=== PATIENT | male | born 1970 | race Caucasian/White ===

== ENCOUNTER 2017-01-03 03:39 | Emergency (ER) | payer OTHER ==
[2017-01-03] MEDS ORDERED: DIPHTH,PERTUSS(ACELL),TET 0.5 ML DISP.SYRIN IM ONE (04:05)
[2017-01-03 04:29] VITALS: TEMP 98.7; BMI 23.3
[2017-01-03] MEDS ORDERED: ceFAZolin 2 GRAM PREMIX BAG IVPB ONE (04:30)
[2017-01-03] MEDS ORDERED: D5W ONE (05:01)
[2017-01-03] MEDS ORDERED: CEFAZOLIN ONE (05:01)
--- NOTE | 2017-01-03 05:07 | PDOC ---
History of Present Illness - General Chief Complaint: Injury Stated Complaint: LACERATION TO RIGHT FINGERS Time Seen by Provider: 01/03/17 03:56 - History of Present Illness Initial Comments: 01/03/17 05:02 CHIEF COMPLAINT: laceration to R index finger HISTORY OF PRESENT ILLNESS: 46 yo M with no significant PMH presents to ED with crush injury and laceration to R index finger. Patient states that he was walking down basement stairs and his hand was still above his head when someone shut the metal basement door on his finger. 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 Patient is unsure when his last tetanus shot was. No recent travel or sick contacts. PAST MEDICAL HISTORY: Denies past medical history FAMILY HISTORY: Denies SOCIAL HISTORY: Denies tobacco, alcohol, illicit drug use. SURGICAL HISTORY: Denies ALLERGIES: No known drug allergies REVIEW OF SYSTEMS General/Constitutional: Denies fever or chills. Denies weakness, weight change. HEENT: Denies change in vision. Denies ear pain or discharge. Denies sore throat. Cardiovascular: Denies chest pain or shortness of breath. Respiratory: Denies cough, wheezing, or hemoptysis. Gastrointestinal: Denies nausea, vomiting, diarrhea or constipation. Denies rectal bleeding. Genitourinary: Denies dysuria, frequency, or change in urination. Musculoskeletal: Pain to R index finger. Denies neck or back pain. Skin: Denies rash or easy bruising. Neurologic: Denies headache, vertigo, loss of consciousness, or loss of sensation. PHYSICAL EXAM General Appearance: Well-appearing, appropriately dressed. No apparent distress. HEENT: EOMI, PERRLA, normal ENT inspection, normal voice, TMs normal, pharynx normal. No conjunctival pallor. No photophobia, scleral icterus. Neck: Supple. Trachea midline. No tenderness, rigidity, carotid bruit, stridor , lymphadenopathy, or thyromegaly. Respiratory/Chest: Lungs CTAB. No shortness of breath, chest tenderness, respiratory distress, accessory muscle use. No crackles, rales, rhonchi, stridor , wheezing, dullness Cardiovascular: RRR. S1, S2. No JVD, murmur, bradycardia, tachycardia. Vascular Pulses: Dorsalis-Pedis (R): 2+, Dorsalis-Pedis (L): 2+ Gastrointestinal/Abdominal: Normal bowel sounds. Abdomen soft, non-distended. No tenderness or rebound tenderness. No organomegaly, pulsatile mass, guarding , hernia, hepatomegaly, splenomegaly. Lymphatic: No adenopathy, tenderness. Musculoskeletal/Extremities: Significant crush injury with 2 cm deep laceration to palmar aspect of finger. Full ROM to R index finger but with pain. Finger is neurovascularly intact, no tendon involvement. Normal inspection. FROM of all extremities, normal capillary refill. Pelvis Stable. No CVA tenderness. No tenderness to extremities, pedal edema, swelling, erythema or deformity. Integumentary: Appropriate color, dry, warm. No cyanosis, erythema, jaundice or rash Neurologic: hydrogen operator II-XII intact. Fully oriented, alert. Appropriate mood/affect. Motor strength 5/5. No appreciable EOM palsy, facial droop or sensory deficit. Past History - Past Medical History Allergies/Adverse Reactions: Allergies Allergy/AdvReac Type Severity Reaction Status Date / Time cefazolin sodium [From [facility]] Allergy Rash Verified 01/03/17 05:53 Home Medications: Ambulatory Orders Amoxicillin/Potassium Clav [Augmentin 875-125 Tablet] 1 each PO BID #14 tablet 01/03/17 - Suicide/Smoking/Psychosocial Hx Smoking History: Never smoked Have you smoked in the past 12 months: No Information on smoking cessation initiated: No Hx Alcohol Use: No Drug/Substance Use Hx: No *Physical Exam - Vital Signs Last Vital Signs Temp Pulse Resp BP Pulse Ox 98.7 F 89 20 135/85 100 01/03/17 03:53 01/03/17 03:53 01/03/17 03:53 01/03/17 03:53 01/03/17 03:53 ED Treatment Course - LABORATORY CBC & Chemistry Diagram: 01/03/17 05:10 01/03/17 05:14 - RADIOLOGY Radiology Studies Ordered: Category Date Time Status FINGER(S) RIGHT [RAD] Stat Radiology 01/03/17 04:05 Taken - Medications Given in the ED: ED Medications Discontinued Medications Generic Name Dose Route Start Last Admin Trade Name Freq PRN Reason Stop Dose Admin Diphtheria/Tetanus/Acell Pertussis 0.5 ml 01/03/17 04:05 01/03/17 04:29 Boostrix - IM 01/03/17 04:06 0.5 ml .ONCE ONE Administration Oxycodone/Acetaminophen 1 combo 01/03/17 04:20 01/03/17 04:29 Percocet 5/325 - PO 01/03/17 04:21 1 combo ONCE ONE Administration Medical Decision Making - Medical Decision Making 01/03/17 05:05 46 yo M with no significant PMH presents to ED with crush injury and laceration to R index finger. -Finger x-ray -Tdap -1 g Ancef -2 g Vancomycin X-ray positive for displaced fracture to proximal PIP, possible open fracture given deep laceration over site of fracture. Will cover with Ancef. Hand surgeon MD Christensen pageliset. 01/03/17 05:44 Patient developed rash after administratin of Ancef. -[address] Christensen paged x2. 01/03/17 06:00 Dr Amparo ley x 3, per answering service Dr. Christensen "no longer works for the group" per crime prevention police officer. Dr. Del Toro pageliset. *DC/Admit/Observation/Transfer Diagnosis at time of Disposition: Crush injury of hand, Open fracture - Discharge Dispostion Disposition: HOME Condition at time of disposition: Good - Prescriptions Prescriptions: Amoxicillin/Potassium Clav [Augmentin 875-125 Tablet] 1 each PO BID #14 tablet - Referrals Referrals: Dylan Campos MD [Staff Physician] - - Patient Instructions Printed Discharge Instructions: DI for Finger Fracture, DI for Laceration Repair -- Complex Additional Instructions: Please do not remove dressing and keep finger splint on as recommended. Please take antibiotics starting tonight. Please follow-up with referred physician tomorrow at 12 noon.
[2017-01-03] MEDS ORDERED: VANCOMYCIN 2,000 MG in DEXTROSE 5%-WATER - 500 ML IVPB ONE (05:15)
[2017-01-03 05:19] LABS: BASOPHIL 0.5 % (0-2.0); EOSINOPHIL 0.8 % (0-4.5); MCH 31.2 pg (25.7-33.7); MCHC 33.2 g/dl (32.0-35.9); NEUTROPHILS 62.3 % (42.8-82.8); PLATELET COUNT 245 K/MM3 (134-434); RDW 14.4 % (11.9-15.9); WHITE BLOOD COUNT 7.8 K/mm3 (4.0-10.0)
[2017-01-03] MEDS ORDERED: VANCOMYCIN 1 GRAM (PRE-DOCKED) 250 ML IVPB ONE (05:26)
[2017-01-03 05:31] LABS: INR 1.03 (0.82-1.09); PROTHROMBIN TIME (PATIENT) 11.6 SEC (9.98-11.88)
[2017-01-03 05:34] LABS: ACTIVATED PTT 29.7 SECONDS (26.9-34.4)
[2017-01-03 06:03] LABS: ALBUMIN 4.3 g/dl (3.4-5.0); ANION GAP 6 (8-16); BILIRUBIN,TOTAL 0.3 mg/dL (0.2-1.0); CO2 30 mmol/L (21-32); CREATININE 0.8 mg/dL (0.7-1.3); GLUCOSE,RANDOM 106 mg/dL (74-106); SGOT/AST 14 U/L (15-37); SGPT/ALT 37 U/L (12-78); TOT PROT 7.9 g/dl (6.4-8.2)
[2017-01-03 06:04] LABS: ALK PHOS 93 U/L (45-117)
--- NOTE | 2017-01-03 07:39 | PDOC ---
*Physical Exam - Vital Signs Last Vital Signs Temp Pulse Resp BP Pulse Ox 98.7 F 75 16 103/65 98 01/03/17 06:48 01/03/17 06:48 01/03/17 06:48 01/03/17 06:48 01/03/17 06:48 ED Treatment Course - LABORATORY CBC & Chemistry Diagram: 01/03/17 05:10 01/03/17 05:14 - ADDITIONAL ORDERS Additional order review: Laboratory Results 01/03/17 01/03/17 01/03/17 05:14 05:10 05:10 PT with INR 11.60 INR 1.03 PTT (Actin FS) 29.7 Sodium 141 Potassium 4.3 Chloride 105 Carbon Dioxide 30 Anion Gap 6 L BUN 21 H Creatinine 0.8 Creat Clearance w eGFR > 60 Random Glucose 106 Calcium 9.0 Total Bilirubin 0.3 AST 14 L ALT 37 Alkaline Phosphatase 93 Total Protein 7.9 Albumin 4.3 Blood Type O POSITIVE Antibody Screen Negative 01/03/17 05:10 RBC 5.03 MCV 94.0 MCHC 33.2 RDW 14.4 MPV 8.0 Neutrophils % 62.3 Lymphocytes % 30.4 Monocytes % 6.0 Eosinophils % 0.8 Basophils % 0.5 - Medications Given in the ED: ED Medications Discontinued Medications Generic Name Dose Route Start Last Admin Trade Name Freq PRN Reason Stop Dose Admin Cefazolin Sodium/Dextrose 2 gm 01/03/17 04:30 01/03/17 05:14 Ancef 2 Gm Premixed Ivpb - IVPB 01/03/17 04:31 2 gm ONCE ONE Administration Diphenhydramine HCl 50 mg 01/03/17 05:34 01/03/17 05:38 Benadryl Injection - IVPUSH 01/03/17 05:35 50 mg ONCE ONE Administration Diphtheria/Tetanus/Acell Pertussis 0.5 ml 01/03/17 04:05 01/03/17 04:29 Boostrix - IM 01/03/17 04:06 0.5 ml .ONCE ONE Administration Vancomycin HCl 2,000 mg/ 500 mls @ 250 mls/hr 01/03/17 05:15 01/03/17 05:50 Dextrose IVPB 01/03/17 07:14 250 mls/hr ONCE ONE Administration Protocol Oxycodone/Acetaminophen 1 combo 01/03/17 04:20 01/03/17 04:29 Percocet 5/325 - PO 01/03/17 04:21 1 combo ONCE ONE Administration Medical Decision Making - Medical Decision Making 01/03/17 07:39 Patient received in sign out from NPH and. Patient with crush injury to his right second digit with a noted open fracture. Patient received prophylactic antibiotics including Ancef and vancomycin along with a tetanus vaccine. Due to the locality and severity of injury despite normal 2 point discrimination and normal neurovascular findings, orthopedist SHERI Ferris will consult shortly here in the ER. Area was redressed with Betadine and normal saline covered with sterile gauze. 01/03/17 09:56 Laceration repair done without difficulty patient to follow-up in Dr. Campos's office as recommended by Fabricio Ferris the physician catering assistant who assessed patient in the emergency department. Discharge home with Augmentin. *DC/Admit/Observation/Transfer Diagnosis at time of Disposition: Crushing injury of hand, Open fracture - Discharge Dispostion Disposition: HOME Condition at time of disposition: Good - Referrals Referrals: Dylan Campos MD [Staff Physician] - - Patient Instructions Printed Discharge Instructions: DI for Finger Fracture, DI for Laceration Repair -- Complex Additional Instructions: Please do not remove dressing and keep finger splint on as recommended. Please take antibiotics starting tonight. Please follow-up with referred physician tomorrow at 12 noon. Procedures - Laceration/Wound Repair Right Finger Wound Length: 5.0 to 7.5 cm Wound Explored: clean Wound's Depth, Shape: irregular Irrigated w/ Saline: Yes Betadine Prep: Yes Anesthesia: 1% Lidocaine, Bupivacaine HCL 0.5% Amount of Anesthetic (ccs): 7 Wound Debrided: moderate Wound Repaired With: Sutures Suture Size/Type: 5:0 (8), 4:0 (7) Number of Sutures: 15 Sterile Dressing Applied: Yes (telfa) Splint Applied: Yes (metal finger splint) Progress: 01/03/17 09:53 Procedure was done under local anesthesia providing a digital block utilizing lidocaine and Marcaine injected around the laceration for longer acting anesthesia due to complexity of laceration and time spent on procedure. Washout done 2 utilizing copious Betadine followed by normal saline.
--- NOTE | 2017-01-03 08:00 | CON.ORTH ---
Consult Reason for Consultation:: right index finger fx and laceration - Alcohol/Substance Use Hx Alcohol Use: No - Smoking History Smoking history: Never smoked Have you smoked in the past 12 months: No Home Medications - Allergies Allergies/Adverse Reactions: Allergies Allergy/AdvReac Type Severity Reaction Status Date / Time cefazolin sodium [From Ancef] Allergy Rash Verified 01/03/17 05:53 - Home Medications Home Medications: Ambulatory Orders NK [No Known Home Medication] 01/03/17 Physical Exam for Ortho Vital Signs: Vital Signs Temperature 98.7 F 01/03/17 06:48 Pulse Rate 75 01/03/17 06:48 Respiratory Rate 16 01/03/17 06:48 Blood Pressure 103/65 01/03/17 06:48 O2 Sat by Pulse Oximetry (%) 98 01/03/17 06:48 Wound/Incision: Yes: Unapproximated Labs: CBC, BMP 01/03/17 05:10 01/03/17 05:14 INR, PTT INR 1.03 (0.82-1.09) 01/03/17 05:10 - Upper Extremity Hand: Yes: Right, Laceration, Limited ROM, Pain, Swelling, Tenderness, Other ( NVI) Imaging - Results X-ray: Image Reviewed Assessment/Plan 46 yo M R HD with no significant PMH presents to ED with crush injury and laceration to R index finger. Patient states that he was walking down basement stairs and his hand was still above his head when someone shut the metal basement door on his finger. a/p- Right index crush injury- middle phalanx fx with minimal displacement- laceration No surgery needed Wound will be irrigated and closed by ED staff sterile dressing and splint to be applied d/c home with abx f/u in the office tomorrow d/w Dr. Campos
[2017-01-03] MEDS ORDERED: BUPIVACAINE HCL/PF 0.5% (5MG/ML) 10 ML VIAL ONE (08:24)
[2017-01-03 11:04] VITALS: BP 102/68; PULSE 72
== END 2017-01-03 11:05 | disposition home or self-care (01) ==
LOC: JER 03:39
PROC: 3E03329 Introduction of Other Anti-infective into Peripheral Vein, Percutaneous Approach (ICD-10-PCS; principal; 2017-01-03)
PROC: 3E03329 Introduction of Other Anti-infective into Peripheral Vein, Percutaneous Approach (ICD-10-PCS; 2017-01-03)
PROC: 3E033GC Introduction of Other Therapeutic Substance into Peripheral Vein, Percutaneous Approach (ICD-10-PCS; 2017-01-03)
PROC: 3E0234Z Introduction of Serum, Toxoid and Vaccine into Muscle, Percutaneous Approach (ICD-10-PCS; 2017-01-03)
PROC: 2W3JX1Z Immobilization of Right Finger using Splint (ICD-10-PCS; 2017-01-03)
PROC: 0JQJ0ZZ Repair Right Hand Subcutaneous Tissue and Fascia, Open Approach (ICD-10-PCS; 2017-01-03)
DX: S62.630B Displaced fracture of distal phalanx of right index finger, initial encounter for open fracture (principal); W23.0XXA Caught, crushed, jammed, or pinched between moving objects, initial encounter; Y93.89 Activity, other specified; Y92.018 Other place in single-family (private) house as the place of occurrence of the external cause
CPT/HCPCS: 36415; 73140-TC-RT; 80053; 85025; 85610; 85730; 86850; 86900; 86901; 90715; 99282-25

== ENCOUNTER 2022-07-07 05:02 | Day surgery (SDC) | payer OTHER ==
[2022-07-06 09:42] VITALS: BMI 28.4
[2022-07-07 08:51] VITALS: TEMP 98.7
[2022-07-07 10:15] VITALS: BP 113/78; PULSE 64; RESP 15
== END 2022-07-07 09:45 | disposition home or self-care (01) ==
LOC: JASU-ENDO 05:02
PROVIDERS: ATTEND Student in an Organized Health Care Education/Training Program
PROC: 0DBL8ZX Excision of Transverse Colon, Via Natural or Artificial Opening Endoscopic, Diagnostic (ICD-10-PCS; principal; 2022-07-07 08:00)
DX: Z12.11 Encounter for screening for malignant neoplasm of colon (principal); D12.3 Benign neoplasm of transverse colon; K57.30 Diverticulosis of large intestine without perforation or abscess without bleeding
CPT/HCPCS: 88305-TC